=== PATIENT | male | born 1960 | race Caucasian/White ===

== ENCOUNTER → 2024-04-08 | Day surgery (SDC) | payer MEDICARE, OTHER ==
[2024-04-07 08:58] VITALS: BMI 36.5
[~2024-04-08] MED LIST: LACTATED RINGERS 1,000 ML IV SCH; PROPOFOL 10 MG/ML 20 ML VIAL IV ONE
[2024-04-08 11:26] VITALS: TEMP 98.4
[2024-04-08] MEDS: IV FLUID CONTINUATION 1,000 ML IV ONE (12:17)
--- NOTE | 2024-04-08 12:51 | P.PCN ---
Date of Procedure: 04/08/24 Procedure(s) Performed: BRIEF HISTORY: Patient is a 63-year-old pleasant white male scheduled for an elective colonoscopy as a part of screening for colon cancer. PROCEDURE PERFORMED: Colonoscopy with snare polypectomy. PREOPERATIVE DIAGNOSIS: Screening for colon cancer. IV sedation per Anesthesia. PROCEDURE: After informed consent was obtained, the patient, was brought into the endoscopy unit. IV sedation was administered by Anesthesia under continuous monitoring. Digital rectal examination was normal. Initially the Olympus CF-160 flexible video colonoscope was then inserted in the rectum, gradually advanced into the cecum without any difficulty. Careful examination was performed as the scope was gradually being withdrawn. Ileocecal valve and the appendiceal orifice were visualized and appeared normal. Prep was excellent. Mucosa of the cecum had a 5 mm polyp that was removed by cold snare polypectomy. Rest of the, ascending colon, transverse colon, descending colon normal. In the sigmoid colon there was another 5 mm polyp that was removed by cold snare polypectomy. Rest of the, sigmoid colon, and rectum appeared normal. Retroflexion was performed in the rectum and no lesions were seen. The patient tolerated the procedure well. IMPRESSION: 5 mm cecal polyp status post cold snare polypectomy 5 mm distal sigmoid colon polyp status post polypectomy Rest of the colon appeared normal RECOMMENDATIONS: Findings of this examination were discussed with the patient as well as his family. He was advised to follow-up with the biopsy results. If the biopsy reveals adenoma he can have repeat colonoscopy in 5 years
[2024-04-08 13:13] VITALS: BP 146/90; PULSE 88; RESP 14
== END ==
LOC: ORWHC2ENDO 10:27
PROVIDERS: ATTEND Internal Medicine Gastroenterology
DX: Z12.11 Encounter for screening for malignant neoplasm of colon (principal); D12.5 Benign neoplasm of sigmoid colon; D12.0 Benign neoplasm of cecum; I10 Essential (primary) hypertension; K50.90 Crohn's disease, unspecified, without complications; Z79.899 Other long term (current) drug therapy
CPT/HCPCS: 88305; 45385; J2704